=== PATIENT | male | born 1940 | race Caucasian/White ===

== ENCOUNTER 2021-02-03 16:05 | Emergency (ER) | payer OTHER ==
[~2021-02-03 16:05] MED LIST: CARDIZEM 60MG T60 MG PO; FLOMAX0.4 MG PO; METOPROLOL TART25 MG PO; NORCO 7.5-3251 EACH PO; PLAVIX75 MG PO; PRIMIDONE50 MG PO; VITAMIN D1000 UNIT PO; ZOCOR10 MG PO; ZOFRAN4 MG PO
[2021-02-03 16:21] LABS: HEMOGLOBIN 15.1 gm/dl (14.0-17.5); RED BLOOD COUNT 5.4 M/UL (4.20-5.50); WHITE BLOOD COUNT 7.6 K/UL (4.5-11.0)
[2021-02-03 16:51] LABS: BUN/CREATININE RATIO 12 (0-10)
== END 2021-02-03 22:50 | disposition home or self-care (01) ==
LOC: ER1 16:05
PROVIDERS: Emergency Medicine
DX: R07.9 Chest pain, unspecified (principal); R42 Dizziness and giddiness; I25.10 Atherosclerotic heart disease of native coronary artery without angina pectoris; Z79.02 Long term (current) use of antithrombotics/antiplatelets
CPT/HCPCS: 71045; 80053; 82550; 82553; 83874; 84484; 85025; 93005; 99285